=== PATIENT | female | born 1995 | race Caucasian/White ===

== ENCOUNTER 2018-09-10 22:33 | Emergency (ER) | payer BC ==
[2018-09-10 23:34] LABS: ABS Basophils 0.1 10^3/ul (0-0.2); ABS Eosinophils 0.4 10^3/ul (0-0.6); ABS Lymphocytes 2.8 10^3/ul (1.0-4.8); ABS Monocytes 0.4 10^3/ul (0-0.8); ABS Neutrophils 2.4 10^3/ul (1.5-7.7); Eosinophil % 6.8 %; Hematocrit 42 % (35-47); Hemoglobin 14.5 g/dL (12.0-16.0); Lymphocyte % 45.7 %; Mean Corpuscular HGB Conc 35 g/dL (31-36); Mean Corpuscular Hemoglobin 32 pg (27-31); Mean Corpuscular Volume 91 fL (80-97); Mean Platelet Volume 6.8 fL (7.4-10.4); Nucleated Red Blood Cells % 0.1; Platelet Count 288 10^3/uL (150-450); Red Blood Count 4.56 10^6 /uL (3.70-4.87); Red Cell Distribution Width 13 % (10-15); White Blood Count 6.1 10^3/uL (3.5-10.8)
[2018-09-10 23:51] LABS: ALT 15 U/L (7-52); AST 16 U/L (13-39); Albumin 4.5 g/dL (3.2-5.2); Albumin/Globulin Ratio 1.7 (1-3); Alkaline Phosphatase 36 U/L (34-104); Anion Gap 6 mmol/L (2-11); BUN/Creatinine Ratio 17.6 (8-20); Blood Urea Nitrogen 12 mg/dL (6-24); C Reactive Protein < 1.00 mg/L (<8.01); CO2 Carbon Dioxide 27 mmol/L (22-32); Calcium 9.9 mg/dL (8.6-10.3); Chloride 106 mmol/L (101-111); EGFR African American 129.7 (>60); EGFR Non-African American 107.2 (>60); Globulin 2.7 g/dL (2-4); Glucose 87 mg/dL (70-100); Potassium 3.8 mmol/L (3.5-5.0); Sodium 139 mmol/L (135-145); Total Protein 7.2 g/dL (6.4-8.9)
[2018-09-11] MEDS ORDERED: Ondansetron ODT TAB* 4 MG SL ONE (01:33)
--- NOTE | 2018-09-11 01:34 | ED ---
Abdominal Pain/Female - HPI Summary HPI Summary: This is a 23-year-old generally healthy woman who has been experiencing intermittent nausea and vomiting for the past 3 days. She has had some very mild migratory abdominal pain, but is much more troubled by the nausea and vomiting. There have been no fevers. She has had periods where her symptoms resolved, at one point for up to a day, only returned return after she had a fairly big heavy meal. There has been no diarrhea. The patient has no past abdominal surgical history. She has no other complaints. - History of Current Complaint Chief Complaint: EDNauseaVomitDiarrh Stated Complaint: VOMITING,COLD,LOW TEMP PER PT Time Seen by Provider: 09/11/18 01:16 Pain Intensity: 0 Allergies/Adverse Reactions: Allergies Allergy/AdvReac Type Severity Reaction Status Date / Time No Known Allergies Allergy Verified 09/10/18 22:47 PMH/Surg Hx/FS Hx/Imm Hx Previously Healthy: No Endocrine/Hematology History: Denies: Hx Diabetes Cardiovascular History: Denies: Hx Hypertension Respiratory History: Denies: Hx Asthma - Surgical History Surgical History: None Infectious Disease History: No Infectious Disease History: Denies: Traveled Outside the [place] in Last 30 Days - Social History Occupation: Employed Full-time Lives: With Family Alcohol Use: Occasionally Hx Substance Use: No Substance Use Type: Reports: None Hx Tobacco Use: No Smoking Status (MU): Never Smoked Tobacco Review of Systems Negative: Shortness Of Breath Positive: Abdominal Pain, Vomiting Positive: no symptoms reported All Other Systems Reviewed And Are Negative: Yes Physical Exam - Summary Physical Exam Summary: Appearance: Well-appearing, Well-nourished, lying in bed comfortably Skin: Warm, dry, no obvious rash Eyes: sclera anicteric, no conjunctival pallor ENT: mucous membranes moist, pharynx appears normal Neck: Supple, nontender Respiratory: Clear to auscultation, no signs of respiratory distress Cardiovascular: Normal S1, S2. No murmurs. Normal distal pulses in tibial and radial bilaterally. Abdomen: Soft, nontender, normal active bowel sounds present Musculoskeletal: Normal, Strength/ROM Intact Neurological: A&Ox3, awake and alert, mentation is normal, speech is fluent and appropriate Psychiatric: affect is normal, does not appear anxious or depressed Triage Information Reviewed: Yes Vital Signs On Initial Exam: Initial Vitals Temp Pulse Resp BP Pulse Ox 97.4 F 66 15 113/75 100 09/10/18 22:46 09/10/18 22:46 09/10/18 22:46 09/10/18 22:46 09/10/18 22:46 Vital Signs Reviewed: Yes Diagnostics - Vital Signs Vital Signs Temp Pulse Resp BP Pulse Ox 09/11/18 01:20 98 F 66 16 109/77 100 09/10/18 22:46 97.4 F 66 15 113/75 100 - Laboratory Lab Results: Lab Results 09/10/18 09/10/18 09/10/18 Range/Units 23:28 23:28 23:28 WBC 6.1 (3.5-10.8) 10^3/uL RBC 4.56 (3.70-4.87) 10^6 /uL Hgb 14.5 (12.0-16.0) g/dL Hct 42 (35-47) % MCV 91 (80-97) fL MCH 32 H (27-31) pg MCHC 35 (31-36) g/dL RDW 13 (10-15) % Plt Count 288 (150-450) 10^3/uL MPV 6.8 L (7.4-10.4) fL Neut % (Auto) 39.2 % Lymph % (Auto) 45.7 % [place] % (Auto) 7.2 % Eos % (Auto) 6.8 % Baso % (Auto) 1.1 % Absolute Neuts (auto) 2.4 (1.5-7.7) 10^3/ul Absolute Lymphs (auto) 2.8 (1.0-4.8) 10^3/ul Absolute Monos (auto) 0.4 (0-0.8) 10^3/ul Absolute Eos (auto) 0.4 (0-0.6) 10^3/ul Absolute Basos (auto) 0.1 (0-0.2) 10^3/ul Absolute Nucleated RBC 0.0 10^3/ul Nucleated RBC % 0.1 Sodium 139 (135-145) mmol/L Potassium 3.8 (3.5-5.0) mmol/L Chloride 106 (101-111) mmol/L Carbon Dioxide 27 (22-32) mmol/L Anion Gap 6 (2-11) mmol/L BUN 12 (6-24) mg/dL Creatinine 0.68 (0.51-0.95) mg/dL Est GFR ( Amer) 129.7 (>60) Est GFR (Non-Af Amer) 107.2 (>60) BUN/Creatinine Ratio 17.6 (8-20) Glucose 87 (70-100) mg/dL Lactic Acid 0.8 (0.5-2.0) mmol/L Calcium 9.9 (8.6-10.3) mg/dL Total Bilirubin 0.30 (0.2-1.0) mg/dL AST 16 (13-39) U/L ALT 15 (7-52) U/L Alkaline Phosphatase 36 (34-104) U/L C-Reactive Protein < 1.00 (<8.01) mg/L Total Protein 7.2 (6.4-8.9) g/dL Albumin 4.5 (3.2-5.2) g/dL Globulin 2.7 (2-4) g/dL Albumin/Globulin Ratio 1.7 (1-3) Lipase 62 (11.0-82.0) U/L Result Diagrams: 09/10/18 23:28 09/10/18 23:28 Lab Statement: Any lab studies that have been ordered have been reviewed, and results considered in the medical decision making process. Abdominal Pain Fem Course/Dx - Diagnoses Provider Diagnoses: Nausea & vomiting Discharge - Sign-Out/Discharge Documenting (check all that apply): Patient Departure - discharge Patient Received Moderate/Deep Sedation with Procedure: No - Discharge Plan Condition: Good Disposition: HOME Prescriptions: Ondansetron ODT TAB* [Zofran 4 MG Odt TAB*] 8 mg PO Q6H PRN #12 tab.odt PRN Reason: Nausea Patient Education Materials: Acute Nausea and Vomiting (ED) Referrals: Marci Hernandez NP [Primary Care Provider] - 3 Days (if not better) Additional Instructions: For the next 24 hours, through Tuesday night, I would like you to stick to a clear liquid diet. You can use the zofran as needed, but the liquids will keep you hydrated. Starting Tuesday if you are feeling ok, you can advance your diet , but I would do it slowly to make sure your stomach is tolerating things. If you develop marked increase in your pain, high fever, or bloody diarrhea those are "red flags" that would make me want to see you back here again. - Billing Disposition and Condition Condition: GOOD Disposition: Home - Attestation Statements Document Initiated by Shira: Yes Documenting Scribe: Sergei Forrest Provider For Whom Shira is Documenting (Include Credential): Rayshawn Lennon MD Scribe Attestation: I, Sergei Forrest, scribed for Rayshawn Lennon MD on 09/11/18 at 0651. Scribe Documentation Reviewed: Yes Provider Attestation: The documentation as recorded by the Sergei mueller accurately reflects the service I personally performed and the decisions made by me, Rayshawn Lennon MD Status of Scribe Document: Viewed
[2018-09-11 01:58] VITALS: BP 104/73
== END 2018-09-11 01:56 | disposition home or self-care (01) ==
LOC: ED 22:33
DX: R11.2 Nausea with vomiting, unspecified (principal); R10.9 Unspecified abdominal pain
CPT/HCPCS: 36415; 80053; 83605; 83690; 85025; 86140; 99282; A9270-GY